=== PATIENT | male | born 1970 | race Two or more races ===

== ENCOUNTER 2021-05-07 02:28 | Emergency (ER) | payer MEDICAID ==
[~2021-05-07] VITALS: Ht 180.3 cm; Wt 95.4 kg
[2021-05-07] MEDS ORDERED: OXYcodone/APAP 5/325MG TABLET PO ONE ×2 (03:30→05:30)
[2021-05-07] MEDS ORDERED: KETOROLAC 30 MG/1 ML IM ONE (03:30)
[2021-05-07] MEDS ORDERED: KETOROLAC 60 MG/2 ML ONE (04:20)
[2021-05-07] MEDS ORDERED: OXYcodone/APAP 5/325MG TABLET ONE ×2 (04:21→05:42)
--- NOTE | 2021-05-07 04:34 | NUR ---
Medicated per order. xrays done
[2021-05-07] MEDS ORDERED: DIPH,PERTUSS(ACELL),TET VAC/PF NC IM-VACC ONE (05:30)
[2021-05-07] MEDS ORDERED: DIPH,PERTUSS(ACELL),TET VAC/PF 0.5 ML IM-VACC ONE (05:42)
[2021-05-07 05:51] VITALS: BP 135/71
--- NOTE | 2021-05-07 05:51 | NUR ---
Pt reports pain decrease somewhat post percocet, ERP ordered 2nd dose. Pt not driving. VSS. No rxn to Tdap.
== END 2021-05-07 05:53 | disposition home or self-care (01) ==
LOC: ED 05:47
DX: S39.012A Strain of muscle, fascia and tendon of lower back, initial encounter (principal); S00.81XA Abrasion of other part of head, initial encounter; M54.2 Cervicalgia; M25.551 Pain in right hip; R51.9 Headache, unspecified; M79.641 Pain in right hand; E11.9 Type 2 diabetes mellitus without complications; E78.00 Pure hypercholesterolemia, unspecified; V23.4XXA Motorcycle driver injured in collision with car, pick-up truck or van in traffic accident, initial encounter; Y93.89 Activity, other specified; Y92.89 Other specified places as the place of occurrence of the external cause; Y99.8 Other external cause status
CPT/HCPCS: 70450; 72125; 72131; 73000; 73130; 73502; 90471; 90715; 96372; 99285; J1885